=== PATIENT | female | born 1980 | race Caucasian/White ===

== ENCOUNTER 2020-05-05 22:45 | Emergency (ER) | payer SELFPAY ==
[~2020-05-05] VITALS: Ht 154.9 cm; Wt 63.5 kg
[2020-05-05 22:52] VITALS: Ht 154.9 cm; Wt 63.5 kg
[2020-05-06 01:44] VITALS: BP 141/96
== END 2020-05-06 01:44 | disposition other institution (70) ==
LOC: ED 22:45
DX: O36.4XX0 Maternal care for intrauterine death, not applicable or unspecified (principal); R10.2 Pelvic and perineal pain

== ENCOUNTER 2020-05-05 22:45 | Emergency (ER) | payer OTHER | END 2020-05-06 01:44 | disposition other institution (70) | LOC: ED 22:45 | DX: Z02.89 Encounter for other administrative examinations (principal) ==